=== PATIENT | female | born 1945 | race Caucasian/White ===

== ENCOUNTER 2017-08-02 14:59 | Emergency (ER) | payer MEDICARE, MEDICAID ==
[~2017-08-02] VITALS: Ht 152.4 cm; Wt 68.0 kg
[2017-08-02 15:39] LABS: BASOPHILS % (AUTO) 0.3 % (0-1); EOSINOPHILS % (AUTO) 0.4 % (0-6); HEMATOCRIT 44.2 % (35.0-45.0); HEMOGLOBIN 15.5 g/dl (12.0-16.0); LYMPHOCYTES # (AUTO) 1.6 X10'3 (1.1-4.8); LYMPHOCYTES % (AUTO) 14.6 % (21-51); MEAN CORPUSCULAR HEMOGLOBIN 28.8 PG (27.0-31.0); MEAN CORPUSCULAR VOLUME 82.5 FL (78-98); MEAN PLATELET VOLUME 8.6 FL (7.4-10.4); MONOCYTES # (AUTO) 0.8 X10'3 (0-0.9); MONOCYTES % (AUTO) 7.6 % (2-12); NEUTROPHILS # (AUTO) 8.6 X10'3 (1.8-7.7); NEUTROPHILS % (AUTO) 77.1 % (42-75); PLATELET COUNT 224 X10'3 (140-440); RED BLOOD COUNT 5.36 X10'6 (4.20-5.60); RED CELL DISTRIBUTION WIDTH 14.5 % (11.5-14.5); WHITE BLOOD COUNT 11.1 X10'3 (4.5-11.0)
[2017-08-02 16:03] LABS: ALANINE AMINOTRANSFERASE 30 U/L (12-78); ALBUMIN 3.7 G/DL (3.4-5.0); ALBUMIN/GLOBULIN RATIO 0.8 (1.1-1.5); ALKALINE PHOSPHATASE 113 IU/L (46-116); ANION GAP 13 (8-16); ASPARTATE AMINO TRANSFERASE 27 U/L (10-37); BILIRUBIN,TOTAL 1.7 MG/DL (0.1-1.0); BLOOD UREA NITROGEN 10 MG/DL (7-18); BUN/CREATININE RATIO 9.7 (6.6-38.0); CALCIUM 8.9 MG/DL (8.5-10.1); CHLORIDE 98 MMOL/L (99-107); CREATININE 1.03 MG/DL (0.40-0.90); GLUCOSE 133 MG/DL (70-104); LIPASE 140 U/L (73-393); POTASSIUM 3.3 MMOL/L (3.5-5.1); SODIUM 134 MMOL/L (135-145); TOTAL CARBON DIOXIDE 23.1 MMOL/L (24-32); TOTAL PROTEIN 8.4 G/DL (6.4-8.2); eGFR 53 ML/MIN
[2017-08-02] MEDS ORDERED: normal saline 1000ML IV soln IVB ONE (17:50)
[2017-08-02 19:19] LABS: COLOR,URINE Yellow (Yellow); GLUCOSE, URINE Negative (Neg); KETONES,URINE Negative (Neg); LEUKOCYTE ESTERASE ,URINE Negative (Neg); NITRITES, URINE Negative (Neg); OCCULT BLOOD,URINE Negative (Neg); PH,URINE 5.5 (4.8-8.0); PROTEIN,URINE Negative (Neg); UROBILINOGEN,URINE 0.2 E.U/dL (0.2-1.0)
[2017-08-02 19:25] LABS: UA COLLECTION TYPE STRAIGHT CATH
[2017-08-02 19:26] LABS: CLARITY,URINE Slightly Cloudy (Clear)
[2017-08-02 19:28] LABS: BACTERIA,URINE NONE SEEN /HPF (Neg); MUCUS STRANDS MANY /LPF (Neg); RBC,URINE NONE SEEN /HPF (0-2); SQUAMOUS EPITHELIAL CELL,UR FEW /LPF (FEW); WBC,URINE 0-4 /HPF (0-4)
[2017-08-02 21:13] VITALS: BP 133/100
== END 2017-08-02 21:14 | disposition home or self-care (01) ==
LOC: ER 15:01
DX: B34.9 Viral infection, unspecified (principal); E78.00 Pure hypercholesterolemia, unspecified; I10 Essential (primary) hypertension; E03.9 Hypothyroidism, unspecified; J44.9 Chronic obstructive pulmonary disease, unspecified; Z88.0 Allergy status to penicillin
CPT/HCPCS: 36415; 71046; 80053; 81001; 83690; 83880; 84484; 85025; 99285; J7030; 93005

== ENCOUNTER 2020-10-24 18:07 | Inpatient (IN) | payer BC, MEDICAID ==
[~2020-10-24] VITALS: Ht 152.4 cm; Wt 63.6 kg
--- NOTE | 2020-10-24 18:28 | NUR ---
STROKE NURSE ARRIVES AT 1820, PT TAKEN TO CT AT 182. PT HAD REFUSED AN IV BY EMS, THEY CAUSE HER TO BECOME SICK PER THE PT.
[2020-10-24] MEDS ORDERED: hydrALAZINE 25 MG tablet PO ONE (18:35)
[2020-10-24 18:40] LABS: BASOPHILS % (AUTO) 0.3 % (0-1); EOSINOPHILS % (AUTO) 0.4 % (0-6); HEMATOCRIT 46.6 % (35.0-45.0); HEMOGLOBIN 15.9 g/dl (12.0-16.0); LYMPHOCYTES # (AUTO) 2.2 X10'3 (1.1-4.8); LYMPHOCYTES % (AUTO) 20.6 % (21-51); MEAN CORPUSCULAR HEMOGLOBIN 29.2 PG (27.0-31.0); MEAN CORPUSCULAR HGB CONC 34.1 g/dL (33.0-36.5); MEAN CORPUSCULAR VOLUME 85.6 FL (78-98); MEAN PLATELET VOLUME 8.7 FL (7.4-10.4); MONOCYTES # (AUTO) 0.7 X10'3 (0-0.9); MONOCYTES % (AUTO) 6.5 % (2-12); NEUTROPHILS # (AUTO) 7.6 X10'3 (1.8-7.7); NEUTROPHILS % (AUTO) 72.2 % (42-75); PLATELET COUNT 212 X10'3 (140-440); RED BLOOD COUNT 5.44 X10'6 (4.20-5.60); RED CELL DISTRIBUTION WIDTH 14.9 % (11.5-14.5); WHITE BLOOD COUNT 10.5 X10'3 (4.5-11.0)
[2020-10-24 18:46] LABS: PARTIAL THROMBOPLASTIN TIME 24 SECONDS (22-32)
[2020-10-24 18:49] LABS: ALANINE AMINOTRANSFERASE 28 U/L (12-78); ALBUMIN 3.7 G/DL (3.4-5.0); ALBUMIN/GLOBULIN RATIO 0.8 (1.1-1.5); ALKALINE PHOSPHATASE 132 IU/L (46-116); ANION GAP 11 (8-16); ASPARTATE AMINO TRANSFERASE 24 U/L (10-37); BILIRUBIN,TOTAL 1.7 MG/DL (0.1-1.0); BLOOD UREA NITROGEN 14 MG/DL (7-18); BUN/CREATININE RATIO 13.6 (6.6-38.0); CALCIUM 9.1 MG/DL (8.5-10.1); CHLORIDE 108 MMOL/L (99-107); CREATININE 1.03 MG/DL (0.40-0.90); GLUCOSE 123 MG/DL (70-104); POTASSIUM 4.4 MMOL/L (3.5-5.1); SODIUM 146 MMOL/L (135-145); TOTAL CARBON DIOXIDE 27.3 MMOL/L (24-32); TOTAL PROTEIN 8.2 G/DL (6.4-8.2); eGFR 52 ML/MIN
[2020-10-24] MEDS ORDERED: mag hydrox/Alum hydrox/simeth 30ml oral suspension PO PRN (21:05)
[2020-10-24] MEDS ORDERED: diphenhydrAMINE 25mg capsule PO PRN (21:05)
[2020-10-24] MEDS ORDERED: magnesium hydroxide 30ml (MOM) UD suspension PO PRN (21:05)
[2020-10-24] MEDS ORDERED: diphenhydrAMINE 50 mg/ml inj IV PRN (21:05)
[2020-10-24] MEDS ORDERED: ondansetron/PF 4mg/2ml inj IV PRN (21:05)
[2020-10-24] MEDS ORDERED: bisacodyl 10mg suppository rectal RC PRN (21:05)
[2020-10-24] MEDS ORDERED: morphine 2 MG/ML inj. syringe IV PRN ×2 (21:05)
[2020-10-24] MEDS ORDERED: hydrALAZINE 25 MG tablet PO STA (21:18)
--- NOTE | 2020-10-24 21:30 | NUR ---
Patient in room ORTHO 4015. I have received report from JUAN LUIS Ortega and had the opportunity to ask questions and assume patient care.
[2020-10-24 21:53] LABS: HEMOGLOBIN A1C 5.7 % (4.5-6.2)
[2020-10-24 22:00] VITALS: BP 183/98
[2020-10-24 22:00] LABS: LIPASE 148 U/L (73-393); MAGNESIUM 2.1 MG/DL (1.5-2.4); PHOSPHORUS 3.6 MG/DL (2.3-4.5)
[2020-10-24] MEDS ORDERED: CLOP75TA34 PO (22:16)
[2020-10-24] MEDS ORDERED: AMLO2.5T2 PO (22:16)
[2020-10-24] MEDS ORDERED: ASPI81TA52 PO (22:22)
[2020-10-24] MEDS ORDERED: LOSA25TA96 PO (22:22)
[2020-10-24] MEDS ORDERED: LEVO25TA2 PO (22:22)
[2020-10-24] MEDS ORDERED: ATOR80TA PO (22:22)
[2020-10-24] MEDS: normal saline 1000ml 1,000 ML IV SCH (22:40)
[2020-10-25] VITALS (7 sets, daily range): BP systolic 142–203; BP diastolic 83–120
[2020-10-25] MEDS ORDERED: LOSA1TAB41 PO (02:02)
[2020-10-25 03:11] LABS: CLARITY,URINE CLOUDY (Clear); COLOR,URINE YELLOW (Yellow); GLUCOSE, URINE NEGATIVE (Neg); KETONES,URINE NEGATIVE (Neg); LEUKOCYTE ESTERASE ,URINE MODERATE (Neg); NITRITES, URINE POSITIVE (Neg); OCCULT BLOOD,URINE NEGATIVE (Neg); PROTEIN,URINE TRACE mg/dl (Neg); UROBILINOGEN,URINE 0.2 E.U/dL (0.2-1.0)
[2020-10-25 03:34] LABS: UA COLLECTION TYPE NON-SPECIFIED
[2020-10-25 03:37] LABS: BACTERIA,URINE 4+ /HPF (Neg); RBC,URINE NONE SEEN /HPF (0-2)
[2020-10-25 03:38] LABS: MUCUS STRANDS MODERATE /LPF (Neg); SQUAMOUS EPITHELIAL CELL,UR MODERATE /LPF (FEW); WBC CLUMPS,URINE FEW /HPF (NEGATIVE); YEAST FEW /HPF (NEGATIVE)
[2020-10-25] MEDS ORDERED: CefTRIAXone/D5W-Rocephin 1gm 50 ML IV SCH (03:45)
[2020-10-25] MEDS: levoFLOXACIN 500mg tablet PO SCH ×2 (04:33→11:36)
--- NOTE | 2020-10-25 06:29 | NUR ---
Patient in room ORTHO 4015. I have received report from Claudia MCKNIGHT and had the opportunity to ask questions and assume patient care.
--- NOTE | 2020-10-25 06:42 | NUR ---
Problems reprioritized. Patient report given, questions answered & plan of care reviewed with JUAN LUIS Pierre.
[2020-10-25 06:49] LABS: BASOPHILS % (AUTO) 0.2 % (0-1); EOSINOPHILS # (AUTO) 0.1 X10'3 (0-0.9); EOSINOPHILS % (AUTO) 0.5 % (0-6); HEMATOCRIT 44.8 % (35.0-45.0); HEMOGLOBIN 14.9 g/dl (12.0-16.0); LYMPHOCYTES # (AUTO) 3.3 X10'3 (1.1-4.8); LYMPHOCYTES % (AUTO) 27.2 % (21-51); MEAN CORPUSCULAR HEMOGLOBIN 28.6 PG (27.0-31.0); MEAN CORPUSCULAR HGB CONC 33.3 g/dL (33.0-36.5); MEAN PLATELET VOLUME 8.8 FL (7.4-10.4); MONOCYTES # (AUTO) 0.9 X10'3 (0-0.9); MONOCYTES % (AUTO) 7.6 % (2-12); NEUTROPHILS # (AUTO) 7.8 X10'3 (1.8-7.7); NEUTROPHILS % (AUTO) 64.5 % (42-75); PLATELET COUNT 218 X10'3 (140-440); RED BLOOD COUNT 5.21 X10'6 (4.20-5.60); RED CELL DISTRIBUTION WIDTH 14.6 % (11.5-14.5); WHITE BLOOD COUNT 12.1 X10'3 (4.5-11.0)
[2020-10-25 07:11] LABS: ALANINE AMINOTRANSFERASE 24 U/L (12-78); ALBUMIN 3.4 G/DL (3.4-5.0); ALBUMIN/GLOBULIN RATIO 0.8 (1.1-1.5); ALKALINE PHOSPHATASE 109 IU/L (46-116); ANION GAP 11 (8-16); ASPARTATE AMINO TRANSFERASE 21 U/L (10-37); BILIRUBIN,TOTAL 1.9 MG/DL (0.1-1.0); BLOOD UREA NITROGEN 10 MG/DL (7-18); BUN/CREATININE RATIO 11.6 (6.6-38.0); CALCIUM 8.8 MG/DL (8.5-10.1); CHLORIDE 106 MMOL/L (99-107); CHOL/HDL RATIO 4.6 (0.00-4.99); CHOLESTEROL 190 MG/DL (0-200); CREATININE 0.86 MG/DL (0.40-0.90); GLUCOSE 101 MG/DL (70-104); HDL CHOLESTEROL 41 MG/DL (35-60); LDL CHOLESTEROL 121 MG/DL (50-100); POTASSIUM 3.7 MMOL/L (3.5-5.1); SODIUM 143 MMOL/L (135-145); TOTAL CARBON DIOXIDE 26.3 MMOL/L (24-32); TOTAL PROTEIN 7.7 G/DL (6.4-8.2); TRIGLYCERIDES 163 MG/DL (20-135); eGFR 64 ML/MIN
[2020-10-25] MEDS ORDERED: atorvastatin 20mg tablet PO SCH (08:00)
[2020-10-25] MEDS ORDERED: aspirin 81mg tablet.DR PO SCH (08:00)
[2020-10-25] MEDS ORDERED: clopidogrel 75mg tablet PO SCH (08:00)
[2020-10-25] MEDS: docusate sod 100mg capsule PO SCH ×2 (08:00→20:51)
[2020-10-25] MEDS: clopidogrel 75mg tablet PO SCH (08:44)
[2020-10-25] MEDS: aspirin 81mg tablet.DR PO SCH (08:44)
[2020-10-25] MEDS: pantoprazole 40mg Tablet.DR PO SCH (08:45)
[2020-10-25] MEDS: levoTHYROXINE 25mcg tablet PO SCH (08:45)
[2020-10-25] MEDS: heparin, porcine 5000 units/ml vial SQ SCH ×2 (08:45→20:44)
--- NOTE | 2020-10-25 09:56 | NUR ---
Noted pt has been made DNR w/ comfort care per EMR. [facility] 10/24. Will continue to follow. Rec: 1. bowel care per rx Addendum: 10/25/20 at [address] Amended: Links added.
[2020-10-25] MEDS ORDERED: acetaminophen 325mg tablet PO PRN (10:05)
--- NOTE | 2020-10-25 11:48 | NUR ---
Off telemtry to go to MRI.
--- NOTE | 2020-10-25 12:24 | NUR ---
Paged vascular to let them know about carotids needed.
--- NOTE | 2020-10-25 12:31 | NUR ---
PAGER ID: [phone] MESSAGE: [phone] Little, patient is vomiting and she is refusing to have an IV. Can i got PO zofran? thanks, terry [phone]
--- NOTE | 2020-10-25 13:11 | NUR ---
PAGER ID: [phone] MESSAGE: [id number], Ruchi, BP 203/120 zamzam topetecomends diasoltic <120. Do you want her to have any meds? She is refusing an iv. Thanks, terry Arce Addendum: 10/25/20 at 1451 by Terry Valverde RN 25 mg hydralazine given PO and re-check of BP was 158/96.
[2020-10-25] MEDS ORDERED: hydrALAZINE 25 MG tablet PO ONE (13:30)
[2020-10-25] MEDS: ondansetron 4mg rapidly disintigrating tab PO PRN (13:49)
--- NOTE | 2020-10-25 18:13 | NUR ---
Problems reprioritized. Patient report given, questions answered & plan of care reviewed with Jeremy MCKNIGHT.
--- NOTE | 2020-10-25 18:46 | NUR ---
Patient in room ORTHO 4015. I have received report from terry arizmendi and had the opportunity to ask questions and assume patient care.
[2020-10-25] MEDS: atorvastatin 20mg tablet PO SCH (20:51)
[2020-10-25] MEDS: lactobacillus rhamnosus 10,000 MMU CELLS/CAPSULE PO SCH (20:51)
[2020-10-26] VITALS (7 sets, daily range): BP systolic 157–182; BP diastolic 89–102
--- NOTE | 2020-10-26 00:10 | NUR ---
was told at shift report by day RN that pt refused to have an IV put in and was ok with pt not having an IV. Verified this with charge entry specialist Christen
--- NOTE | 2020-10-26 05:56 | NUR ---
Problems reprioritized. Patient report given, questions answered & plan of care reviewed with Jayla MCKNIGHT.
--- NOTE | 2020-10-26 06:11 | NUR ---
Patient in room ORTHO 4015. I have received report from Jeremy MCKNIGHT and had the opportunity to ask questions and assume patient care.
[2020-10-26] MEDS: clopidogrel 75mg tablet PO SCH (07:59)
[2020-10-26] MEDS: levoTHYROXINE 25mcg tablet PO SCH (07:59)
[2020-10-26] MEDS: aspirin 81mg tablet.DR PO SCH (07:59)
[2020-10-26] MEDS: lactobacillus rhamnosus 10,000 MMU CELLS/CAPSULE PO SCH ×2 (07:59→19:13)
[2020-10-26] MEDS: pantoprazole 40mg Tablet.DR PO SCH (07:59)
[2020-10-26] MEDS: docusate sod 100mg capsule PO SCH ×2 (08:00→19:13)
[2020-10-26] MEDS: heparin, porcine 5000 units/ml vial SQ SCH ×2 (08:00→19:13)
[2020-10-26] MEDS ORDERED: non-formulary drug (Losartan/Hydrochlorothiazide (Losartan-Hctz 100-12.5 Mg Tab) 1 TAB) PO SCH (08:00)
[2020-10-26] MEDS: amLODIPine 5mg tablet PO SCH (08:01)
--- NOTE | 2020-10-26 08:10 | NUR ---
Did not administer amplodipide or losartan doses this morning as blue pushpa tele neuro reccomended permissive hypertension.
[2020-10-26] MEDS: losartan 50mg tablet PO SCH (08:15)
[2020-10-26] MEDS: HYDROchlorothiazide 12.5mg capsule PO SCH (08:19)
[2020-10-26 09:06] LABS: BASOPHILS % (AUTO) 0.3 % (0-1); EOSINOPHILS % (AUTO) 0.3 % (0-6); HEMATOCRIT 44.9 % (35.0-45.0); HEMOGLOBIN 15.1 g/dl (12.0-16.0); LYMPHOCYTES # (AUTO) 2.1 X10'3 (1.1-4.8); LYMPHOCYTES % (AUTO) 23.1 % (21-51); MEAN CORPUSCULAR HEMOGLOBIN 28.8 PG (27.0-31.0); MEAN CORPUSCULAR HGB CONC 33.6 g/dL (33.0-36.5); MEAN CORPUSCULAR VOLUME 85.8 FL (78-98); MEAN PLATELET VOLUME 8.7 FL (7.4-10.4); MONOCYTES # (AUTO) 0.5 X10'3 (0-0.9); MONOCYTES % (AUTO) 5.9 % (2-12); NEUTROPHILS # (AUTO) 6.4 X10'3 (1.8-7.7); NEUTROPHILS % (AUTO) 70.4 % (42-75); PLATELET COUNT 209 X10'3 (140-440); RED BLOOD COUNT 5.23 X10'6 (4.20-5.60); RED CELL DISTRIBUTION WIDTH 14.8 % (11.5-14.5); WHITE BLOOD COUNT 9.1 X10'3 (4.5-11.0)
[2020-10-26 09:31] LABS: ALANINE AMINOTRANSFERASE 25 U/L (12-78); ALBUMIN 3.2 G/DL (3.4-5.0); ALBUMIN/GLOBULIN RATIO 0.8 (1.1-1.5); ALKALINE PHOSPHATASE 101 IU/L (46-116); ANION GAP 12 (8-16); ASPARTATE AMINO TRANSFERASE 24 U/L (10-37); BILIRUBIN,TOTAL 2.8 MG/DL (0.1-1.0); BLOOD UREA NITROGEN 14 MG/DL (7-18); BUN/CREATININE RATIO 13.1 (6.6-38.0); CALCIUM 8.7 MG/DL (8.5-10.1); CHLORIDE 105 MMOL/L (99-107); CREATININE 1.07 MG/DL (0.40-0.90); GLUCOSE 143 MG/DL (70-104); POTASSIUM 3.2 MMOL/L (3.5-5.1); SODIUM 140 MMOL/L (135-145); TOTAL CARBON DIOXIDE 22.6 MMOL/L (24-32); TOTAL PROTEIN 7.4 G/DL (6.4-8.2); eGFR 50 ML/MIN
[2020-10-26] MEDS: ondansetron 4mg rapidly disintigrating tab PO PRN (09:46)
--- NOTE | 2020-10-26 10:20 | NUR ---
PAGER ID: [phone] MESSAGE: [phone] little, can I order replacement protocol for her. is 3.2, terry [id number]
[2020-10-26] MEDS ORDERED: potassium Cl 20 mEq SR tablet PO PRN (10:40)
[2020-10-26] MEDS ORDERED: potassium Cl 40MEQ/1/2NS 520ml 520 ML IV PRN (10:40)
[2020-10-26] MEDS ORDERED: magnesium Cl slow-release 64mg tablet PO PRN (10:40)
[2020-10-26] MEDS ORDERED: magnesium 4gm in 100ml NS 100 ML IV PRN (10:40)
[2020-10-26] MEDS: levoFLOXACIN 250mg tablet PO SCH (11:02)
[2020-10-26] MEDS: potassium Cl 20 mEq SR tablet PO PRN ×2 (11:02→14:36)
--- NOTE | 2020-10-26 11:19 | NUR ---
Per stroke RN permissive htn will be over aroung 1500 today as last known normal was 1500 10/24.
--- NOTE | 2020-10-26 18:31 | NUR ---
Problems reprioritized. Patient report given, questions answered & plan of care reviewed with Arlen MCKNIGHT.
--- NOTE | 2020-10-26 18:35 | NUR ---
Patient in room ORTHO 4015. I have received report from Gabby MCKNIGHT and had the opportunity to ask questions and assume patient care. Pt is laying bed with post op vitals connected. Family is at bedside. No signs of distress, will continue to monitor. Addendum: 10/26/20 at 1837 by Arlen Barnhart RN Note written on wrong pt.
--- NOTE | 2020-10-26 18:37 | NUR ---
Patient in room ORTHO 4015. I have received report from Gabby MCKNIGHT and had the opportunity to ask questions and assume patient care.
[2020-10-26] MEDS: atorvastatin 20mg tablet PO SCH (19:13)
[2020-10-26] MEDS: K and/or MAG REPLACEMENT MC SCH (19:15)
--- NOTE | 2020-10-26 22:01 | NUR ---
Was told by day shift RN that it was ok to leave out IV, however fluids are still ordered. Verified Pt does not have an IV at this time and is refusing to have one put back in since she is leaving tomorrow for rehab.
[2020-10-26] MEDS: normal saline 1000ml 1,000 ML IV SCH (22:18)
[2020-10-27 02:00] VITALS: BP 168/82
[2020-10-27 06:06] LABS: BASOPHILS % (AUTO) 0.3 % (0-1); EOSINOPHILS % (AUTO) 0.5 % (0-6); HEMATOCRIT 44.5 % (35.0-45.0); HEMOGLOBIN 14.8 g/dl (12.0-16.0); LYMPHOCYTES # (AUTO) 2.7 X10'3 (1.1-4.8); LYMPHOCYTES % (AUTO) 32.9 % (21-51); MEAN CORPUSCULAR HEMOGLOBIN 28.7 PG (27.0-31.0); MEAN CORPUSCULAR HGB CONC 33.3 g/dL (33.0-36.5); MEAN CORPUSCULAR VOLUME 86.4 FL (78-98); MEAN PLATELET VOLUME 8.6 FL (7.4-10.4); MONOCYTES # (AUTO) 0.6 X10'3 (0-0.9); MONOCYTES % (AUTO) 7.1 % (2-12); NEUTROPHILS # (AUTO) 4.9 X10'3 (1.8-7.7); NEUTROPHILS % (AUTO) 59.2 % (42-75); PLATELET COUNT 201 X10'3 (140-440); RED BLOOD COUNT 5.15 X10'6 (4.20-5.60); RED CELL DISTRIBUTION WIDTH 14.4 % (11.5-14.5); WHITE BLOOD COUNT 8.3 X10'3 (4.5-11.0)
--- NOTE | 2020-10-27 06:14 | NUR ---
Problems reprioritized. Patient report given, questions answered & plan of care reviewed with Gabby MCKNIGHT.
--- NOTE | 2020-10-27 06:19 | NUR ---
Patient in room ORTHO 4015. I have received report from JUAN LUIS Mckinley and had the opportunity to ask questions and assume patient care.
[2020-10-27 06:23] LABS: ALANINE AMINOTRANSFERASE 30 U/L (12-78); ALBUMIN 3.2 G/DL (3.4-5.0); ALBUMIN/GLOBULIN RATIO 0.8 (1.1-1.5); ALKALINE PHOSPHATASE 96 IU/L (46-116); ANION GAP 7 (8-16); ASPARTATE AMINO TRANSFERASE 25 U/L (10-37); BILIRUBIN,TOTAL 2.7 MG/DL (0.1-1.0); BLOOD UREA NITROGEN 16 MG/DL (7-18); BUN/CREATININE RATIO 14.8 (6.6-38.0); CALCIUM 8.8 MG/DL (8.5-10.1); CHLORIDE 107 MMOL/L (99-107); CREATININE 1.08 MG/DL (0.40-0.90); GLUCOSE 97 MG/DL (70-104); POTASSIUM 4.2 MMOL/L (3.5-5.1); SODIUM 141 MMOL/L (135-145); TOTAL CARBON DIOXIDE 27.3 MMOL/L (24-32); TOTAL PROTEIN 7.3 G/DL (6.4-8.2); eGFR 49 ML/MIN
[2020-10-27 06:27] VITALS: BP 163/76
[2020-10-27] MEDS: K and/or MAG REPLACEMENT MC SCH (08:00)
[2020-10-27] MEDS: docusate sod 100mg capsule PO SCH (08:00)
[2020-10-27] MEDS: levoTHYROXINE 25mcg tablet PO SCH (08:04)
[2020-10-27] MEDS: pantoprazole 40mg Tablet.DR PO SCH (08:04)
[2020-10-27] MEDS: clopidogrel 75mg tablet PO SCH (08:04)
[2020-10-27] MEDS: aspirin 81mg tablet.DR PO SCH (08:04)
[2020-10-27] MEDS: heparin, porcine 5000 units/ml vial SQ SCH (08:05)
[2020-10-27] MEDS: lactobacillus rhamnosus 10,000 MMU CELLS/CAPSULE PO SCH (08:05)
[2020-10-27] MEDS: losartan 50mg tablet PO SCH (08:06)
[2020-10-27] MEDS: HYDROchlorothiazide 12.5mg capsule PO SCH (08:06)
[2020-10-27] MEDS: amLODIPine 5mg tablet PO SCH (08:07)
--- NOTE | 2020-10-27 10:18 | NUR ---
PAGER ID: [phone] MESSAGE: [phone] little, can I take off her telemetry? she has been sinus rhythm. terry [phone]
[2020-10-27 11:02] VITALS: BP 179/91
[2020-10-27] MEDS: levoFLOXACIN 250mg tablet PO SCH (11:10)
--- NOTE | 2020-10-27 11:19 | NUR ---
Called report to [facility].
--- NOTE | 2020-10-27 11:53 | NUR ---
Patient was discharged via ambulance to [facility]. Patient is alert and oriented x4 in no acute distress. Vital signs stable. Called report to [facility].
== END 2020-10-27 12:00 | DRG 65 ==
LOC: ER 18:07 → ED HOLD 21:02 → ORTHO 4S 22:00
PROVIDERS: ADMIT Family Medicine; ATTEND Family Medicine
DX: I63.9 Cerebral infarction, unspecified (principal); N39.0 Urinary tract infection, site not specified; I16.1 Hypertensive emergency; I69.351 Hemiplegia and hemiparesis following cerebral infarction affecting right dominant side; E78.5 Hyperlipidemia, unspecified; N18.2 Chronic kidney disease, stage 2 (mild); R29.6 Repeated falls; Z51.5 Encounter for palliative care; Z53.20 Procedure and treatment not carried out because of patient's decision for unspecified reasons; W18.39XA Other fall on same level, initial encounter; Z66 Do not resuscitate; E03.9 Hypothyroidism, unspecified; I25.10 Atherosclerotic heart disease of native coronary artery without angina pectoris; R29.701 NIHSS score 1; E78.00 Pure hypercholesterolemia, unspecified; I12.9 Hypertensive chronic kidney disease with stage 1 through stage 4 chronic kidney disease, or unspecified chronic kidney disease; I25.2 Old myocardial infarction; Z79.02 Long term (current) use of antithrombotics/antiplatelets; Z79.82 Long term (current) use of aspirin; Z88.0 Allergy status to penicillin; Z88.5 Allergy status to narcotic agent; Y93.89 Activity, other specified; Y92.89 Other specified places as the place of occurrence of the external cause; Y99.8 Other external cause status; Z79.899 Other long term (current) drug therapy
CPT/HCPCS: 36415; 70450; 70551; 71045; 80053; 80061; 81001; 83036; 83690; 83735; 83880; 84100; 84443; 85025; 85610; 85730; 87077; 87081; 87088; 87186; 92508; 92616; 93005; 93306; 93880; 97110; 97112; 97161; 97530; 99291; G0378; J1644; Q0163

== ENCOUNTER 2023-09-25 00:15 | Inpatient (IN) | payer BC, MEDICAID ==
[~2023-09-25] VITALS: Ht 152.4 cm; Wt 66.7 kg
[~2023-09-25 00:15] MED LIST: AMLO10TA PO; ATOR80TA PO; CLOP75TA34 PO; GABA-530 PO; LEVO25TA2 PO; LORA10TA7 PO; LOSA1TAB41 PO; MECL-231 PO; MELA3TAB39 PO; SERT-432 PO; TEMA15CA5 PO; TIMO5DRO40 EACHEYE; TRAM50TA2 PO
[2023-09-25] MEDS: levoFLOXACIN-Levaquin 750MG/D5 150 ML IV ONE (01:28)
[2023-09-25] MEDS: acetaminophen 325mg tablet PO STA (01:32)
[2023-09-25] MEDS: acetaminophen 1,000mg/100ml IV 100 ML IV ONE (01:39)
[2023-09-25 01:40] LABS: ALANINE AMINOTRANSFERASE 65 U/L (12-78); ALBUMIN 2.1 G/DL (3.4-5.0); ALBUMIN/GLOBULIN RATIO 0.4 (1.1-1.5); ALKALINE PHOSPHATASE 193 IU/L (46-116); ANION GAP 12 (8-16); ASPARTATE AMINO TRANSFERASE 40 U/L (10-37); BILIRUBIN,TOTAL 1.3 MG/DL (0.1-1.0); BLOOD UREA NITROGEN 27 MG/DL (7-18); BUN/CREATININE RATIO 20.9 (10.0-20.0); CALCIUM 8.3 MG/DL (8.5-10.1); CHLORIDE 100 MMOL/L (99-107); CREATININE 1.29 MG/DL (0.40-0.90); GLUCOSE 142 MG/DL (70-104); PRO BRAIN NATRIURETIC PEPTIDE 1078 PG/ML (0-450); SODIUM 140 MMOL/L (135-145); TOTAL CARBON DIOXIDE 28.4 MMOL/L (24-32); TOTAL PROTEIN 7.5 G/DL (6.4-8.2); eCRCL 25 ML/MIN; eGFR 40 ML/MIN
[2023-09-25 01:41] LABS: MEAN CORPUSCULAR HEMOGLOBIN 27.1 PG (27.0-31.0)
[2023-09-25 01:42] LABS: POTASSIUM 2.9 MMOL/L (3.5-5.1)
[2023-09-25 01:44] LABS: BASOPHILS % (AUTO) 0.1 % (0-1); EOSINOPHILS % (AUTO) 0 % (0-6); LYMPHOCYTES % (AUTO) 4.6 % (21-51); MEAN CORPUSCULAR HGB CONC 32.6 g/dL (33.0-36.5); MEAN CORPUSCULAR VOLUME 83.1 FL (78-98); MEAN PLATELET VOLUME 8.2 FL (7.4-10.4); MONOCYTES # (AUTO) 1.1 X10'3 (0-0.9); NEUTROPHILS # (AUTO) 20.3 X10'3 (1.8-7.7); NEUTROPHILS % (AUTO) 90.3 % (42-75); PLATELET COUNT 285 X10'3 (140-440); RED BLOOD COUNT 4.81 X10'6 (4.20-5.60); RED CELL DISTRIBUTION WIDTH 15.7 % (11.5-14.5); WHITE BLOOD COUNT 22.5 X10'3 (4.5-11.0)
[2023-09-25 01:48] LABS: MAGNESIUM 1.9 MG/DL (1.5-2.4)
[2023-09-25] MEDS ORDERED: potassium Cl 20 mEq SR tablet PO PRN ×4 (01:50→04:30)
[2023-09-25] MEDS: normal saline 1000ML IV soln IV ONE (02:00)
[2023-09-25 02:14] LABS: BILIRUBIN,URINE MODERATE (Neg); CLARITY,URINE CLOUDY (Clear); COLOR,URINE YELLOW (Yellow); GLUCOSE, URINE NEGATIVE (Neg); KETONES,URINE NEGATIVE (Neg); LEUKOCYTE ESTERASE ,URINE MODERATE (Neg); NITRITES, URINE NEGATIVE (Neg); OCCULT BLOOD,URINE MODERATE (Neg); PH,URINE 5.5 (4.8-8.0); PROTEIN,URINE TRACE mg/dl (Neg)
[2023-09-25 02:16] LABS: UA COLLECTION TYPE NON-SPECIFIED
[2023-09-25] MEDS: potassium Cl 40MEQ/1/2NS 520ml 520 ML IV PRN (02:28)
[2023-09-25 02:53] LABS: WBC,URINE TNTC /HPF (0-4)
[2023-09-25 02:54] LABS: BACTERIA,URINE 3+ /HPF (Neg)
[2023-09-25 02:55] LABS: SQUAMOUS EPITHELIAL CELL,UR MODERATE /LPF (FEW)
[2023-09-25 02:56] LABS: MUCUS STRANDS NONE SEEN /LPF (Neg)
[2023-09-25 03:35] LABS: PLATELET ESTIMATE NORMAL; TOTAL CELLS COUNTED 100
[2023-09-25] MEDS: NORepinephrine 8mg/ 250ml NS 250 ML IV SCH (04:06)
[2023-09-25] MEDS ORDERED: potassium Cl 40MEQ/1/2NS 520ml 520 ML IV PRN (04:30)
[2023-09-25] MEDS ORDERED: magnesium 4gm in 100ml NS 100 ML IV PRN (04:30)
[2023-09-25] MEDS ORDERED: ondansetron/PF 4mg/2ml inj IV PRN (04:30)
[2023-09-25] MEDS ORDERED: magnesium Cl slow-release 64mg tablet PO PRN (04:30)
[2023-09-25] MEDS ORDERED: magnesium hydroxide 30ml (MOM) UD suspension PO PRN (04:30)
[2023-09-25] MEDS ORDERED: mag hydrox/Alum hydrox/simeth 30ml oral suspension PO PRN (04:30)
[2023-09-25] MEDS ORDERED: magnesium 2GM in 50ml NS 50 ML IV PRN (04:30)
[2023-09-25] MEDS ORDERED: acetaminophen 325mg tablet PO PRN (04:30)
[2023-09-25] MEDS ORDERED: VANCOmycin 1250MG/NS 250ml Bag 250 ML IV SCH (05:40)
[2023-09-25 06:59] VITALS: TEMP 97.7
[2023-09-25] MEDS: vancomycin/NS 1 GM ADD-VANTAGE 250 ML IV SCH (07:17)
[2023-09-25] MEDS ORDERED: ATOR20TA66 PO (07:33)
[2023-09-25] MEDS ORDERED: LATA2.5D14 EACHEYE (07:33)
[2023-09-25] MEDS ORDERED: SERT-434 PO (07:33)
[2023-09-25] MEDS ORDERED: TIMO5DRO15 EACHEYE (07:33)
[2023-09-25] MEDS: K and/or MAG REPLACEMENT MC SCH (07:40)
[2023-09-25] MEDS: docusate sod 100mg capsule PO SCH (08:00)
[2023-09-25] MEDS ORDERED: K and/or MAG REPLACEMENT MC SCH (08:00)
[2023-09-25 08:05] VITALS: BP 124/90; PULSE 78; RESP 24; O2SAT 95
[2023-09-25 10:00] VITALS: BP 95/53; PULSE 65; RESP 22; O2SAT 94
[2023-09-25] MEDS ORDERED: albumin (human) 25% 100 ML IV solution IV ONE (10:10)
[2023-09-25] MEDS ORDERED: ringers solution, lacted 1,000 ML IV ONE (10:10)
[2023-09-25] MEDS: ringers solution, lacted 2,000 ML IV ONE (10:34)
[2023-09-25] MEDS: albumin (human) 25% 100 ML IV solution IV ONE (10:39)
[2023-09-25 10:54] VITALS: BP 104/54; PULSE 69; RESP 21; O2SAT 94
[2023-09-25] MEDS: CefTRIAXone/D5W-Rocephin 1gm 50 ML IV ONE (11:20)
[2023-09-25 12:00] VITALS: BP 110/59; PULSE 81; RESP 20; O2SAT 95
[2023-09-25 13:00] VITALS: BP 82/49; PULSE 78; RESP 24; O2SAT 92
[2023-09-25] MEDS ORDERED: levoFLOXACIN-Levaquin 500mg/D5 100 ML IV SCH (13:28)
[2023-09-26] MEDS ORDERED: VANCOMYCIN 750MG IV in NS 250 ML IV SCH (07:00)
[2023-09-26] MEDS ORDERED: cefpodoxime proxetil 100mg tablet PO SCH (08:30)
[2023-09-29] MEDS ORDERED: VANCOMYCIN LEVEL IV ONE (06:30)
== END 2023-09-25 13:30 | DRG 871 ==
LOC: ER 00:16 → ED HOLD 06:21 → UNDOADMIN 06:21 → ED HOLD 07:08 → CICU 2S 08:00 → UNDODISIN 13:30
PROVIDERS: ADMIT Internal Medicine Pulmonary Disease; ATTEND Internal Medicine Pulmonary Disease
DX: A41.9 Sepsis, unspecified organism (principal); R65.21 Severe sepsis with septic shock; N39.0 Urinary tract infection, site not specified; N17.9 Acute kidney failure, unspecified; Z66 Do not resuscitate; I10 Essential (primary) hypertension; F03.90 Unspecified dementia, unspecified severity, without behavioral disturbance, psychotic disturbance, mood disturbance, and anxiety; E78.00 Pure hypercholesterolemia, unspecified; E03.9 Hypothyroidism, unspecified; E88.09 Other disorders of plasma-protein metabolism, not elsewhere classified; E87.6 Hypokalemia; F41.9 Anxiety disorder, unspecified; Z88.0 Allergy status to penicillin; Z86.73 Personal history of transient ischemic attack (TIA), and cerebral infarction without residual deficits; Z80.41 Family history of malignant neoplasm of ovary; Z80.8 Family history of malignant neoplasm of other organs or systems; Z80.1 Family history of malignant neoplasm of trachea, bronchus and lung; Z88.5 Allergy status to narcotic agent; Z88.8 Allergy status to other drugs, medicaments and biological substances; Z79.899 Other long term (current) drug therapy
CPT/HCPCS: 36415; 71045; 80053; 81001; 82948; 83605; 83735; 83880; 84145; 84484; 85007; 85025; 87040; 87077; 87081; 87088; 87186; 93005; 96365; 96367; 96375; 99285; A4314; A4353; A4615; A6449; G0378; J0131; J0696; J1956; J3370; J3480; J7030; J7120; P9047